=== PATIENT | female | born 1965 | race Caucasian/White ===

== ENCOUNTER 2017-08-21 10:53 | Day surgery (SDC) | payer OTHER ==
[~2017-08-21] VITALS: Ht 170.2 cm; Wt 95.1 kg
[~2017-08-21 10:53] MED LIST: IBUPROFEN; OMEPRAZOLE
[2017-08-21] MEDS ORDERED: PRAV40TA76 PO (11:24)
[2017-08-21] MEDS ORDERED: OMEP40CA6 PO (11:24)
[2017-08-21] MEDS ORDERED: ERGO500037 PO (11:26)
[2017-08-21] MEDS ORDERED: OMEG1CAP31 PO (11:27)
[2017-08-21 11:40] VITALS: Ht 170.2 cm; Wt 95.1 kg
[2017-08-21 11:44] VITALS: BP 116/80; PULSE 72; RESP 16
--- NOTE | 2017-08-21 16:43 | HPN ---
Date/Time of Note Date/Time of Note DATE: 08/21/17 TIME: 16:42 Interval H&P Admission Note Pt. seen H&P reviewed: No system changes BHAKTI CHAPMAN MD Aug 21, 2017 16:43
[2017-08-21] MEDS ORDERED: LACTATED RINGER'S 1,000 ML IV ONE (17:00)
== END 2017-08-21 17:07 | disposition home or self-care (01) ==
LOC: SDS 10:53
PROVIDERS: ATTEND Otolaryngology
DX: E21.3 Hyperparathyroidism, unspecified (principal); Z53.9 Procedure and treatment not carried out, unspecified reason
CPT/HCPCS: 84703